=== PATIENT | male | born 1970 | race Caucasian/White ===

== ENCOUNTER 2021-10-09 09:30 | Day surgery (SDC) | payer OTHER ==
[2021-10-09] MEDS ORDERED: Ringers Lactate 1,000 ML IV ONE (09:48)
[2021-10-09] MEDS ORDERED: CEFAZOLIN/NS 1gm 1 GM/50 ML BAG ONE (09:48)
[2021-10-09] MEDS ORDERED: LIDOCAINE 2% MPF 5 ML VIAL ONE (10:51)
[2021-10-09] MEDS ORDERED: MIDAZOLAM HCL 2 MG/2 ML INJ ONE (10:51)
[2021-10-09] MEDS ORDERED: propofoL 200 MG/20 ML VIAL IV ONE (10:51)
[2021-10-09] MEDS ORDERED: ONDANSETRON 4 MG/2 ML VIAL ONE (10:51)
[2021-10-09] MEDS ORDERED: FENTANYL CITR 100 MCG/2 ML ONE (10:51)
[2021-10-09] MEDS ORDERED: dexAMETHasone 10 MG/ML VIAL ONE (10:51)
[2021-10-09] MEDS ORDERED: BUPIVACAINE 0.5% PF 10 ML VIAL ONE (11:06)
[2021-10-09] MEDS: LIDOCAINE 1% W/EPI 1:100,000 MDV 20 ML VIAL ONE ×2 (11:24→11:55)
[2021-10-09] MEDS: MEPERIDINE HCL 25 MG/ML SYR ONE ×2 (12:41→12:43)
[2021-10-09] MEDS ORDERED: KETOROLAC 30 MG/ML INJ ONE (12:45)
[2021-10-09] MEDS ORDERED: CODEINE 30MG/APAP 300MG TAB ONE (13:37)
[2021-10-09 14:13] VITALS: BP 120/66; TEMP 97.1; O2SAT 98
--- NOTE | 2021-10-10 20:41 | OP ---
Date of Procedure: 10/09/2021 Surgeon: SHWETA SOLIZ Preoperative Diagnosis: Right upper neck mass, uncertain behavior. Postoperative Diagnosis: Right upper neck lipoma. Procedure: Excision of right upper neck lipoma under general and local anesthesia. Anesthesia: General LMA anesthesia was administered. I also infiltrated approximately 10 mL of 1% l idocaine with 1:100,000 epinephrine around the right upper neck incision site. Estimated Blood Loss: Scant, less than 3 cc. Specimens: A well-circumscribed right upper neck lipoma was submitted to Pathology for evaluation. Findings: Well-circumscribed right upper neck subplatysmal lipoma measuring approximately 3.0 x 3.0 cm. Complications: None. Disposition: Stable. The patient tolerated the procedure well. Indication For Procedure: Patient is a pleasant 51-year-old male who presented to my outpatient clin ic with a chronic gradually enlarging right upper neck mass. CT scan demonstrated findings suggestiv e of a lipoma as opposed to a cystic lesion. These were indications to bring the patient to operativ e suite and that the patient started having some mild pain and swelling of the area. He understood, all questions were answered. Risks versus benefits and complications explained in detail and a conse nt form was signed, which was placed in the chart. Description Of Procedure: Patient was transferred from the preoperative holding area to the operativ e suite by Department of Anesthesia, placed on the operating table supine, sedated and an LMA was dede fany. The head was gently rotated to the left and I infiltrated approximately 2 mL of 1% lidocaine wi th 1:100,000 epinephrine at the right upper neck incision site. Patient was then sterilely prepped a nd draped. An incision was made over the neck lesion through the epidermis and down to the subplatysmal layer wi th a #15 blade scalpel as well as a needlepoint monopolar electrocautery on the twentieth setting of coagulation. Once at the subplatysmal level, I was able to grasp the lipoma with a [place] forceps a nd while retracting the mass away from the strap muscle, I was able to dissect completely around the mass, which was well circumscribed. There was one small vessel that had to be ligated and this was d one with a 3-0 silk stick ties. The lesion was completely removed with monopolar electrocautery and measured and found to be 3.0 x 3.0 cm, leaving a defect of approximately 4.2 cm x 4.2 cm. Saline irr igation was introduced into the wound cavity and removed with 4 x 4 gauze. All areas were checked fo r hemostasis and hemostasis was achieved with needlepoint electrocautery. I reapproximated the platy sma and subcutaneous tissue with 4-0 Monocryl in a simple interrupted fashion. I then reapproximated the dermis and epidermis with 4-0 Monocryl in a subcuticular fashion. The suture tails were secured to the neck with Steri-Strips and Steri-Strips was placed over the incision site as well as a compre ssive dressing. He tolerated the procedure well, will be discharged home on antibiotic and analgesic medication. Will follow up in 1 week for wound check and suture tail removal. KIMBERLI/THOMAS Voice ID: [id number] Report ID: [id number]
== END 2021-10-09 14:05 | disposition home or self-care (01) ==
LOC: OR 09:30
PROVIDERS: ATTEND Otolaryngology Facial Plastic Surgery
PROC: 0JB40ZZ Excision of Right Neck Subcutaneous Tissue and Fascia, Open Approach (ICD-10-PCS; principal; 2021-10-09 11:15)
DX: D17.0 Benign lipomatous neoplasm of skin and subcutaneous tissue of head, face and neck (principal); Z20.822 Contact with and (suspected) exposure to COVID-19
CPT/HCPCS: 88305; 11423; U0003; J2704; J2250; J3010; J1100; J2175; J0690; J7120; J2405; 88304

== ENCOUNTER 2025-02-01 06:33 | Emergency (ER) | payer OTHER ==
[2025-02-01 07:31] LABS: Absolute Lymphocytes (CBC) 1.6 K/uL (0.7-4.9); Absolute Monocytes 0.4 K/uL (0.1-1.3); Absolute Neutrophil 3.6 K/uL (1.8-8.0); Basophils % 0.5 % (0-1.3); Eosinophils % 0.6 % (0-4.4); Hematocrit 44.5 % (39.6-49.0); Hemoglobin 15.4 g/dL (13.6-17.9); Lymphocytes % 28.8 % (15.3-44.8); MCH 30.3 pg (27.0-35.0); MCHC 34.5 g/dL (32.0-36.0); MCV 87.7 fL (80-100); MPV 8.5 fL (7.6-11.3); Monocytes % 7.3 % (3.3-12.3); Neutrophils % 62.8 % (41.7-73.7); Nucleated Red Blood Cells % 0.1 % (0-0); Platelets 252 thou/uL (152-406); RBC Red Blood Cell Count 5.08 M/uL (4.33-5.43); Red Cell Distribution Width 13.4 % (12.1-15.2)
[2025-02-01 08:05] LABS: Albumin 3.8 g/dL (3.4-5.0); Albumin/Globulin Ratio 1.1 (1.1-1.8); Anion Gap 10.2 mEq/L (5.0-15.0); Bilirubin Total 2.4 mg/dL (0.2-1.0); Globulin 3.4 g/dL (2.3-3.5); Potassium 3.2 mEq/L (3.5-5.1); Protein, Total 7.2 g/dL (6.4-8.2); Thyroid Stimulating Hormone 3.49 uIU/mL (0.358-3.740)
[2025-02-01 08:16] LABS: PT Prothrombin Time 11.8 SECONDS (10-13.0); Protime INR 1.04
--- NOTE | 2025-02-01 09:54 | RAD REPORT ---
EXAM: CT ABDOMEN AND PELVIS WITH CONTRAST CLINICAL INDICATION: Male, 54 years old. weight loss TECHNIQUE: CT abdomen, and pelvis was performed, following the administration of contrast, as per de partment protocol. Axial, sagittal and coronal reconstructions were obtained. One or more of the following dose reduction techniques were used: Automated exposure control, adjustment of the mA and/o r kV according to patient size, and/or iterative reconstruction. Unless otherwise specified, incidental findings do not require dedicated imaging follow-up. COMPARISON: No prior exam. FINDINGS: LUNGS: Separately evaluated on dedicated CT of the chest. LIVER: Normal in size and contour. Subcentimeter right lobe near fluid density lesions largest presen t in the right lobe inferiorly near the gallbladder bed measuring 9 mm. These are difficult to characterize given small size. Regional subcapsular hypoattenuation near the falciform fissure sugges ting focal fatty infiltration. No suspicious focal lesion or biliary dilitation. BILIARY SYSTEM: No suspicious abnormalities. PANCREAS: No mass, ductal dilation, or kitty-pancreatic fluid. SPLEEN: Normal size. No focal lesion. ADRENALS: Normal; no mass. KIDNEYS AND URETERS: Normal size and contour. No hydronephrosis. Subcentimeter cortical hypoattenuati ng lesions, may suggest benign cysts, difficult to characterize. URINARY BLADDER: Normal contour. GASTROINTESTINAL TRACT: No bowel obstruction, free air, significant free fluid or abscess. APPENDIX: No inflammatory changes in region of appendix. LYMPH NODES: No lymphadenopathy. ABDOMINAL AORTA AND OTHER VESSELS: Normal caliber aorta and IVC. MUSCULOSKELETAL: No acute or suspicious osseous abnormality. Small left larger than right inguinal hernias containing fat. Mild prostatomegaly with calcifications . IMPRESSION: No acute or significant abnormalities seen in the abdomen or pelvis. Incidental findings as above.
--- NOTE | 2025-02-01 10:04 | RAD REPORT ---
EXAMINATION: CT Thorax Wo Con CLINICAL INDICATION: Male, 54 years old. [facility] MA[facility] weight loss Y TECHNIQUE: Axial CT scan of the chest without intravenous contrast. Multiplanar reformats were genera loree and reviewed. One or more of the following dose reduction techniques were used: Automated exposure control, adjustment of the mA and/or kV according patient size, and/or iterative reconstruct ion. Unless otherwise specified, incidental findings do not require dedicated imaging follow-up. COMPARISON: No prior exam. FINDINGS: LOWER NECK: Visualized thyroid gland and soft tissues are normal. LUNGS: The lungs are clear. No evidence of airspace or interstitial process. 8 mm right middle lobe n odule, on axial image 36/75. PLEURA: No pleural effusion. No pneumothorax. . MEDIASTINUM AND LYMPH NODES: No mediastinal mass or fluid collection. Normal size mediastinal, hilar, and axillary lymph nodes. OSSEOUS STRUCTURES AND CHEST WALL: Intact. UPPER ABDOMEN: Separately evaluated on dedicated CT abdomen and pelvis of the same day. IMPRESSION: No acute findings or suspicious adenopathy in the chest. An 8 mm right middle lobe nodule is incidentally noted. 2017 Fleischner Society Recommendations for L stephen Nodule(s): Follow-Up based on size (average of long- and short-axis diameters). Use most suspicious nodule for followup. Single solid lung nodule 6-8 mm: In a low-risk patient, recommend a non-contrast chest CT at 6-12 mon ths, then consider an additional non-contrast chest CT at 18-24 months. In a high-risk patient, recommend a non-contrast chest CT at 6-12 months, then another non-contrast chest CT at 18-24 months, if stable. These guidelines do not apply to patients younger than 35 years, immunocompromised patients, and ashley ents with cancer. F/u in patients with significant comorbidities as clinically warranted. For lung cancer screening, adhere to Lung-RADS guidelines. Reference: Radiology. 2017 Mar; 284(1):228-243
--- NOTE | 2025-02-01 10:54 | ER ---
Nurse's Notes [facility] Name: Cliff Zuniga Age: 54 yrs Sex: Male : 1970 Arrival Date: 02/01/2025 Time: 06:33 Bed 15 Private MD: Diagnosis: Other fatigue;Abnormal weight loss;Solitary pulmonary nodule Presentation: 02/01 06:56 Chief complaint: Patient states: DECREASED APPETITE, SPITTING UP BLOOD, HAS LOST 10 br2 POUNDS IN 1 WEEK. PT HAS BEEN UNDER A LOT OF STRESS LATELY...FATHER PASSED 2 MONTHS AGO. Coronavirus screen: Client denies travel out of the [place] in the last 14 days. Ebola Screen: Patient denies exposure to infectious person. Initial Sepsis Screen: Does the patient meet any 2 criteria? No. Patient's initial sepsis screen is negative. Does the patient have a suspected source of infection? No. Patient's initial sepsis screen is negative. Risk Assessment: Do you want to hurt yourself or someone else? Patient reports no desire to harm self or others. Onset of symptoms was January 18, 2025. 06:56 Method Of Arrival: Ambulatory br2 06:56 Acuity: VISHAL 3 br2 Triage Assessment: 06:59 General: Appears in no apparent distress. comfortable, Behavior is cooperative, br2 anxious. Pain: Denies pain. Historical: - Allergies: 06:59 No Known Allergies; br2 - Home Meds: 06:59 None [Active]; br2 - PMHx: 06:59 None; br2 - Immunization history:: Adult Immunizations not up to date. - Infectious Disease History:: Denies. - Family history:: not pertinent. - Social history:: Smoking status: Patient/guardian denies using tobacco, the patient reports quitting approximately 2 years ago, Patient uses street drugs, cocaine, marijuana, STATES HASN'T USED COCAINE IN 8 MONTHS. Screenin:10 [facility] ED Fall Risk Assessment (Adult) History of falling in the last 3 months, db including since admission No falls in past 3 months (0 pts) Confusion or Disorientation No (0 pts) Intoxicated or Sedated No (0 pts) Impaired Gait No (0 pts) Mobility Assist Device Used No (0 pt) Altered Elimination No (0 pt) Score/Fall Risk Level 0 - 2 = Low Risk Oriented to surroundings, Maintained a safe environment. Abuse screen: Denies threats or abuse. Denies injuries from another. Nutritional screening: No deficits noted. Tuberculosis screening: No symptoms or risk factors identified. Assessment: 07:10 Reassessment: Patient appears in no apparent distress at this time. Patient and/or db family updated on plan of care and expected duration. Pain level reassessed. Patient is alert, oriented x 3, equal unlabored respirations, skin warm/dry/pink. Reassessment: SPITTING UP BLOOD WORSE YESTERDAY. General: Appears in no apparent distress. comfortable, Behavior is calm, cooperative. Neuro: Level of Consciousness is awake, alert, obeys commands, Oriented to person, place, time, situation. Respiratory: Airway is patent Respiratory effort is even, unlabored, Respiratory pattern is regular, symmetrical. GI: Patient currently denies abdominal pain, nausea, vomiting. 09:00 Reassessment: Patient appears in no apparent distress at this time. Patient and/or db family updated on plan of care and expected duration. Pain level reassessed. Patient is alert, oriented x 3, equal unlabored respirations, skin warm/dry/pink. 10:15 Reassessment: Patient appears in no apparent distress at this time. Patient and/or db family updated on plan of care and expected duration. Pain level reassessed. Patient is alert, oriented x 3, equal unlabored respirations, skin warm/dry/pink. General: Appears in no apparent distress. comfortable. Vital Signs: 06:56 BP 152 / 96; Pulse 83; Resp 18; Temp 97.3; Pulse Ox 96% ; Weight 87.09 kg; Height 5 ft. br2 11 in. ; Pain 0/10; 07:00 BP 148 / 90; Pulse 67; Resp 16; Pulse Ox 97% on R/A; db 08:00 BP 129 / 82; Pulse 60; Resp 16; Pulse Ox 96% on R/A; db 09:00 BP 122 / 84; Pulse 54; Resp 16; Pulse Ox 97% on R/A; db 10:00 BP 121 / 74; Pulse 56; Resp 16; Pulse Ox 97% on R/A; db 10:58 BP 121 / 74; Pulse 54; Resp 17; Pulse Ox 100% ; ap3 06:56 Body Mass Index 26.78 (87.09 kg, 180.34 cm) br2 06:56 Pain Scale: Adult br2 ED Course: 06:37 Patient arrived in ED. im 06:44 Vickey Plascencia MD is Attending Physician. rt 06:59 Triage completed. br2 06:59 Arm band placed on right wrist. br2 07:07 Angela Barnett, RN is Primary Nurse. db 07:09 Attending Physician role handed off by Vickey Plascencia MD ms3 07:09 Mark Sood DO is Attending Physician. ms3 07:10 Patient has correct armband on for positive identification. Bed in low position. Call db light in reach. Side rails up X 1. Pulse ox on. NIBP on. Warm blanket given. 07:13 Initial lab(s) drawn, by me, sent to lab. Inserted saline lock: 20 gauge in right db antecubital area, using aseptic technique. Blood collected. Flushed with 10 mL NS. 09:25 Abdomen In Process Unspecified. EDMS 09:37 Thorax Wo Con In Process Unspecified. EDMS 10:58 No provider procedures requiring assistance completed. IV discontinued, intact, ap3 bleeding controlled, No redness/swelling at site. Pressure dressing applied. 10:59 Provided Education on: discharge instructions . ap3 Administered Medications: No medications were administered Medication: 07:10 VIS not applicable for this client. db Outcome: 10:54 Discharge ordered by . ms3 10:58 Discharged to home ambulatory, ap3 10:58 Condition: good 10:58 Discharge instructions given to patient, Instructed on discharge instructions, follow up and referral plans. Demonstrated understanding of instructions, follow-up care, 10:59 Patient left the ED. ap3 Signatures: Dispatcher [employer] EDMS Sarika Cesar, RN RN ap3 Mark Sood DO DO ms3 Angela Barnett, RN RN db Vickey Plascencia MD MD rt Erica Schneider Belinda RN RN br2 Corrections: (The following items were deleted from the chart) 09:25 08:18 In radiology for Chest Abdomen Pelvis W Con+CT.RAD.BRZ. EDMS EDMS
--- NOTE | 2025-02-01 10:54 | EDPHYS ---
Physician Documentation [facility] Name: Cliff Zuniga Age: 54 yrs Sex: Male : 1970 Arrival Date: 02/01/2025 Time: 06:33 Bed 15 Private MD: ED Physician Mark Sood HPI: 02/01 06:54 This 54 yrs old Male presents to ER via Unassigned with complaints of Decreased rt Appetite, Spitting up blood. 06:54 Patient presents to the ED with 2 weeks of unintentional weight loss of over 10 pounds rt as well as spitting up bright blood which he believes is coming from his gums. Denies cough, vomiting. Denies other acute complaints at this time, symptoms are moderate in severity, no other aggravating or alleviating factors.. Historical: - Allergies: 06:59 No Known Allergies; br2 - Home Meds: 06:59 None [Active]; br2 - PMHx: 06:59 None; br2 - Immunization history:: Adult Immunizations not up to date. - Infectious Disease History:: Denies. - Family history:: not pertinent. - Social history:: Smoking status: Patient/guardian denies using tobacco, the patient reports quitting approximately 2 years ago, Patient uses street drugs, cocaine, marijuana, STATES HASN'T USED COCAINE IN 8 MONTHS. ROS: 06:54 Cardiovascular: Negative for chest pain, palpitations, and edema, Respiratory: Negative rt for shortness of breath, cough, wheezing, and pleuritic chest pain, Abdomen/GI: Negative for abdominal pain, nausea, vomiting, diarrhea, and constipation, MS/Extremity: Negative for injury and deformity, Skin: Negative for injury, rash, and discoloration, Neuro: Negative for headache, weakness, numbness, tingling, and seizure, 06:54 Constitutional: Positive for fatigue, weight loss, Exam: 06:54 Constitutional: This is a well developed, well nourished patient who is awake, alert, rt and in no acute distress. Head/Face: Normocephalic, atraumatic. Chest/axilla: Normal chest wall appearance and motion. Nontender with no deformity. No lesions are appreciated. Cardiovascular: Regular rate and rhythm with a normal S1 and S2. No gallops, murmurs, or rubs. Normal PMI, no JVD. No pulse deficits. Respiratory: Lungs have equal breath sounds bilaterally, clear to auscultation and percussion. No rales, rhonchi or wheezes noted. No increased work of breathing, no retractions or nasal flaring. Abdomen/GI: Soft, non-tender, with normal bowel sounds. No distension or tympany. No guarding or rebound. No evidence of tenderness throughout. Skin: Warm, dry with normal turgor. Normal color with no rashes, no lesions, and no evidence of cellulitis. MS/ Extremity: Pulses equal, no cyanosis. Neurovascular intact. Full, normal range of motion. Neuro: Awake and alert, GCS 15, oriented to person, place, time, and situation. Cranial nerves II-XII grossly intact. Motor strength 5/5 in all extremities. Sensory grossly intact. Cerebellar exam normal. Normal gait. Vital Signs: 06:56 BP 152 / 96; Pulse 83; Resp 18; Temp 97.3; Pulse Ox 96% ; Weight 87.09 kg; Height 5 ft. br2 11 in. ; Pain 0/10; 07:00 BP 148 / 90; Pulse 67; Resp 16; Pulse Ox 97% on R/A; db 08:00 BP 129 / 82; Pulse 60; Resp 16; Pulse Ox 96% on R/A; db 09:00 BP 122 / 84; Pulse 54; Resp 16; Pulse Ox 97% on R/A; db 10:00 BP 121 / 74; Pulse 56; Resp 16; Pulse Ox 97% on R/A; db 10:58 BP 121 / 74; Pulse 54; Resp 17; Pulse Ox 100% ; ap3 06:56 Body Mass Index 26.78 (87.09 kg, 180.34 cm) br2 06:56 Pain Scale: Adult br2 MDM: 06:45 Medical Screening Exam initiated rt 17:43 Differential Diagnosis Neoplasm versus electrolyte abnormality versus anemia. Data ms3 reviewed: vital signs, nurses notes, lab test result(s), radiologic studies, and as a result, I will discharge patient. Counseling: I had a detailed discussion with the patient and/or guardian regarding the historical points, exam findings, and any diagnostic results supporting the discharge/admit diagnosis, lab results, radiology results, the need for outpatient follow up, to return to the emergency department if symptoms worsen or persist or if there are any questions or concerns that arise at home. Special discussion: I discussed with the patient/guardian in detail that at this point there is no indication for admission to the hospital. It is understood, however, that if the symptoms persist or worsen the patient needs to return immediately for re-evaluation. ED course: Discussed labs and imaging with patient. Patient to follow-up with primary care physician in 2 to 3 days. Patient understands and agrees with plan. All questions were answered. Return precautions discussed include worsening symptoms, or any other concerns.. 02/01 06:54 Order name: CBC with Diff; Complete Time: 07:40 rt 02/01 06:54 Order name: CMP; Complete Time: 08:22 rt 02/01 06:54 Order name: PT-INR; Complete Time: 08:22 rt 02/01 06:54 Order name: Ptt, Activated; Complete Time: 08:22 rt 02/01 06:54 Order name: TSH; Complete Time: 08:22 rt 02/01 09:25 Order name: Abdomen ; Complete Time: 10:07 EDMS 02/01 09:26 Order name: Thorax Wo Con; Complete Time: 10:07 EDMS Administered Medications: No medications were administered Disposition Summary: 02/01/25 10:54 Discharge Ordered Notes: Location: Home ms3 Condition: Stable ms3 Diagnosis - Other fatigue ms3 - Abnormal weight loss ms3 - Solitary pulmonary nodule ms3 Followup: ms3 - With: Private Physician - When: 2 - 3 days - Reason: Recheck today's complaints Discharge Instructions: - Discharge Summary Sheet ms3 - Fatigue ms3 - Pulmonary Nodule ms3 - Pulmonary Nodule, Ffeb-cy-Qwky ms3 Forms: - Medication Reconciliation Form ms3 - Antibiotic Education ms3 - Prescription Opioid Use ms3 - Patient Portal Instructions ms3 - Leadership Thank You Letter ms3 Signatures: Dispatcher [employer] EDMS Mark Sood DO DO ms3 Vickey Plascencia MD MD rt Shey Schafer RN RN br2 Corrections: (The following items were deleted from the chart) 09: 06:54 Chest Abdomen Pelvis W Con+CT.RAD.BRZ ordered. EDMS EDMS
[2025-02-01 12:02] VITALS: BP 121/74; TEMP 97.3; O2SAT 100
== END 2025-02-01 10:59 | disposition home or self-care (01) ==
LOC: ER 06:33
DX: R63.4 Abnormal weight loss (principal); R53.83 Other fatigue; R91.1 Solitary pulmonary nodule
CPT/HCPCS: 36415; 71250; 74177; 80053; 84443; 85025; 85610; 85730; 99284